=== PATIENT | female | born 2000 | race African-American/Black ===

== ENCOUNTER 2020-11-19 20:14 | Inpatient (IN) | payer OTHER ==
[~2020-11-19] VITALS: Ht 162.6 cm; Wt 66.7 kg
[2020-11-19 20:17] VITALS: BP 110/87
[2020-11-19 20:41] LABS: URINE BILIRUBIN NEGATIVE (Negative); URINE BLOOD NEGATIVE (Negative); URINE CLARITY CLEAR; URINE COLOR YELLOW; URINE GLUCOSE-RANDOM* NEGATIVE (Negative); URINE KETONES 2+ (Negative); URINE LEUKOCYTES-REFLEX NEGATIVE (Negative); URINE NITRITE-REFLEX NEGATIVE (Negative); URINE PROTEIN (DIPSTICK) NEGATIVE (Negative); URINE SPECIFIC GRAVITY 1.015 (1.005-1.035); URINE UROBILINOGEN 0.2 E.U./dl (0.2-1.0)
[2020-11-19 21:15] LABS: BASOPHILS 0.7 % (0.0-2.0); EOSINOPHILS 0.2 % (0.0-3.0); HEMOGLOBIN 12.8 gm/dL (12.0-15.0); LYMPHOCYTES 17.8 % (24.0-44.0); MCH 26.9 pg (26.0-34.0); MCHC 32.9 g/dL (28.0-37.0); MCV 81.8 fL (80.0-100.0); MONOCYTES 6.5 % (1.0-8.0); POLYS 74.8 % (36.0-66.0); RBC 4.77 mil/uL (4.20-5.00); WBC 8.1 thou/uL (4.0-11.0)
[2020-11-19 21:17] LABS: CALCIUM 9.6 mg/dL (8.5-10.1); CREATININE 0.8 mg/dL (0.6-1.0); POTASSIUM 3.8 mmol/L (3.5-5.1)
[2020-11-19 21:24] LABS: ALBUMIN 3.7 g/dL (3.4-5.0); TOTAL BILIRUBIN 0.4 mg/dL (0.2-1.0); TOTAL PROTEIN 7.7 g/dL (6.4-8.2)
[2020-11-19 21:46] LABS: LARGE PLATELETS RARE; PLATELET COUNT 208 thou/uL (150-400)
[2020-11-19 22:52] VITALS: BP 105/67
[2020-11-19 23:07] VITALS: BP 102/64
[2020-11-20 00:05] VITALS: BP 109/64
--- NOTE | 2020-11-20 01:19 | NUR ---
Pt admitted from ED with acute appendicitis. A/OX4,VSS. Up with SBA. C/oabd pain LOP 1/10 at this time and comfortable. Skin intact. Continent of B&B. Denies N/V. Pt is NPO for possible surgery tomorrow. Covid swab done. Fall safety reinforced and pt agrees to call for help before getting up. IVF infusing via LUE IV w/o any problems.Resting quietly at this time,will continue to monitor pt.
[2020-11-20 04:59] VITALS: BP 95/50
[2020-11-20 07:20] VITALS: BP 104/64
[2020-11-20 14:32] VITALS: BP 110/72
[2020-11-20 15:21] VITALS: BP 107/71
--- NOTE | 2020-11-20 15:21 | NUR ---
ASSUMED CARE OF PATIENT AT SHIFT CHNAGE. ASSESSMENT CHARTED. PATIENT NPO FOR LAP APPY THIS DAY. COVID TEST PENDING. CONSENT PRINTED AND READY. PROVIDER DR. RODARTE ROUNDED ON PATIENT AND PROVIDED EDUCATION. VSS; BP SOFT AT BASELINE. PRN PAIN MED ADMINISTERED BY RN AFTER C/O FLANK PAIN; PROVIDED RELIEF. PATIENT LEFT FLOOR AT 1250 AND RETURNED TO FLOOR AT 1432 IN STABLE CONDITION. VITALS REMAIN STABLE ON RA. ABX INFUSING ON L AC W NO ISSUES. DENIES PAIN AT THIS TIME; WILL CONTINUE TO MONIOTOR PATIENT PAIN AND VS. FALL PRECAUTIONS IN PLACE, PATIENT RESTING AT THIS TIME.
[2020-11-20 20:00] VITALS: BP 112/63
--- NOTE | 2020-11-21 05:29 | NUR ---
RECIEVED CARE OF THIS PATIENT AT 1900. PATIENT ALERT AND ORIENTED X4. IV INFUSING IN JOSE. HAS 3 SMALL INCISIONS ON LOWER ABD WITH DERMABOND. EDGES WELLL APPROXIMATED. HAS SCD'S ON. UP TO BATHROO. C/O MILD PAIN, NO MED GIVEN. SLEPT MOST OF NIGHT.
[2020-11-21 09:21] VITALS: BP 110/58
[2020-11-21] MEDS ORDERED: HYDROCODON-ACE1 EAC7 PO (16:30)
[2020-11-21 16:36] VITALS: BP 110/58
--- NOTE | 2020-11-21 17:17 | NUR ---
ASSUMED PATIENT AT DISCHARGE. ASSESSMENT CHARTED. IV ABX INFUSING ON L AC W NO ISSUES PER MAR. VSS. PATIENT IS A&OX4 AND ABLE TO MAKE NEEDS KNOWN. UP AD ANDRE W STEADY GAIT. C/O PAIN AROUND ABDOMINAL AREA, RELIEVED BY PRN PAIN MEDICATION. PATIENT IS MEDICALLY STABLE FOR DISCHARGE W NO NEEDS. PROVIDER SENT PATIENT HOME W F/U IN ONE WEEK. IV DISCONTINUED, PRESCRIPTIONS AND IFO GIVEN TO PATIENT. BELONGINGS W PATIENT. PATIENT LEFT UNIT AT APPROX. 1700.
--- NOTE | 2020-11-23 11:24 | O ---
[facility] [place] [address] OPERATIVE REPORT Name: ANTOINETTE RAMEY Room #: 452-P [facility] IN M.R.#: [id number] Admission: 11/19/20 Attend Phys: Harley Amaro MD Discharge: 11/21/20 Date of : 99 Report #: [id number] THIS REPORT FOR: cc: ISHA - Anabelle family physician/PCP ISHA - No family physician/PCP Teddy Rogers MD ~ DATE OF SERVICE: 11/20/2020 PREOPERATIVE DIAGNOSIS: Acute appendicitis. POSTOPERATIVE DIAGNOSIS: Acute appendicitis. OPERATIVE PROCEDURE DONE: Laparoscopic appendectomy. OPERATING SURGEON: Teddy Rogers MD INDICATIONS FOR THE PROCEDURE: The patient is a 19-year-old female who presented with complaints of right lower quadrant pain. Clinical exam and CT scan showed features of acute appendicitis. The patient was advised laparoscopic appendectomy. The patient showed understanding and agreed to proceed. DESCRIPTION OF PROCEDURE: After explaining to the patient in detail, an informed consent was obtained. The patient was identified in the preoperative holding area. The patient was transferred to the operating room and was placed in supine position. Subsequent sterile compressive devices were placed for DVT prophylaxis. Preoperative antibiotics were given. After induction of anesthesia, the abdomen was prepped and draped in a sterile fashion. Through a left upper quadrant stab incision and using Veress needle technique, pneumoperitoneum was created, thereafter, through a 1 cm left flank incision and using Optiview technique, peritoneal cavity was entered and pneumoperitoneum was continued through 2 cm supraumbilical incision, another 12 mm trocar was placed and another 5 mm trocar was placed through a suprapubic incision approximately about 3 cm above the pubic symphysis. On initial inspection, the appendix appeared inflamed. I initially thought it was a retrocecal appendix. I started to take down the lateral attachments of the cecum; however, the appendix was noted to be subcecal. A window was created in the mesoappendix. Appendix was divided at the base using a KAMILAH blue load stapler, used another white load stapler to divide the mesoappendix. Appendix was then retrieved using an EndoCatch. Thorough saline irrigation was given. Absolute hemostasis was ensured. The 12 mm port site incision was closed with 0 Vicryl for the fascia. Skin was closed with 4-0 Monocryl. Dermabond was applied. The patient was stable at the end of the procedure. The patient was awoken from anesthesia and was transferred to the recovery room in stable condition. [address] [address] OPERATIVE REPORT Name: ANTOINETTE RAMEY Room #: 452-P [facility] IN M.R.#: [id number] Admission: 11/19/20 Attend Phys: Harley Amaro MD Discharge: 11/21/20 Date of : 99 Report #: [id number] ESTIMATED BLOOD LOSS: Approximately 5 mL. CONDITION OF THE PATIENT: Stable. FLUIDS GIVEN: Per anesthesia notes. SPECIMEN SENT: Appendix. COMPLICATIONS: None. ANESTHESIA: General anesthesia. <ELECTRONICALLY SIGNED> By: Teddy Rogers MD 11/23/20 1124 [id number] [id number] Teddy Rogers MD /nt
--- NOTE | 2020-11-23 18:06 | PATH ---
[facility] [address] [place] [address] PATHOLOGY RPT PROCEDURE Name: ANTOINETTE RAMEY Room #: 452-P [facility] IN M.R.#: [id number] Admission: 11/19/20 Date of : 99 Discharge: 11/21/20 Report #: [id number] Path Case #: [id number] [facility] Accession Number: [id number] . 01 Material submitted: . appendix - APPENDIX . 01 Clinical history: . ACUTE APPENDICITIS . 02 Diagnosis: Appendix, appendectomy: - Marked acute appendicitis along with acute serositis. - Proximal margin showing unremarkable mucosa. (IUV:pit 11/23/2020) QTP 11/23/2020 1510 Local . 02 Electronically signed: . Alaina Ayala MD, Pathologist NPI- [id number] . 01 Gross description: . Received in formalin labeled "Ogoti, Antoinette, appendix" is an intact vermiform appendix measuring 5.9 cm in length by 1.1 cm in diameter with attached mesoappendix measuring 4.9 x 1.4 x 0.9 cm. The serosal surface is smooth, mejia-pink and glistening with an area of purulent exudate located 2.6 cm from the surgical resection margin. The surgical resection margin is inked black and the specimen is sectioned to reveal 0.5 cm lumen filled with fecal matter. There are no gross perforations identified. Physical Plant Manager of the specimen are submitted as follows: A1. Margins and cross sections A2. Appendiceal tip entirely submitted.([facility]; 11/22/2020) . . . GZA/GZA 11/22/2020 1721 Local . 02 Pathologist provided ICD-10: K35.80, K65.8 . 02 CPT . 449264 Specimen Comment: A courtesy copy of this report has been sent to [phone] Specimen Comment: Report sent to / DR BUENROSTRO Performed at: [address] [facility], [place] [id number] [place] [address] PATHOLOGY RPT PROCEDURE Name: ANTOINETTE RAMEY Room #: 452-P [facility] IN M.R.#: [id number] Admission: 11/19/20 Date of : 99 Discharge: 11/21/20 Report #: [id number] Path Case #: [id number] MD Yair Coto MD Phone: [phone] Performed at: [address] [id number] MD Alaina Ayala MD Phone: [phone]
== END 2020-11-21 17:04 | disposition home or self-care (01) | DRG 343 ==
LOC: ER 20:14 → EROBS 22:36 → 4W 23:33
PROVIDERS: Emergency Medicine; ADMIT Surgery; ATTEND Surgery
PROC: 0DTJ4ZZ Resection of Appendix, Percutaneous Endoscopic Approach (ICD-10-PCS; principal; 2020-11-20)
DX: K35.80 Unspecified acute appendicitis (principal); Z20.822 Contact with and (suspected) exposure to COVID-19
CPT/HCPCS: 10040; 50101; 50411; 50555; 50558; 50739; 50740; 51489; 51975; 52265; 52266; 53310; 54022; 54118; 56462; 56525; 56526; 58574; 62110; 62900